=== PATIENT | female | born 1980 | race Caucasian/White ===

== ENCOUNTER 2020-09-30 14:56 | Emergency (ER) | payer SELFPAY ==
[~2020-09-30] VITALS: Ht 157.5 cm; Wt 62.6 kg
[2020-09-30 15:11] VITALS: BP 124/70
--- NOTE | 2020-09-30 16:40 | NUR ---
PT AMBULATED CHAIR A
--- NOTE | 2020-09-30 17:04 | NUR ---
NATASHA BUSTAMANTE EXAMINING PT
[2020-09-30] MEDS ORDERED: LIDOCAINE MPF 1% 10 MG/ML VIAL INJ ONE (17:05)
--- NOTE | 2020-09-30 17:13 | NUR ---
PATIENT AMBULATED TO BED 8
--- NOTE | 2020-09-30 17:30 | NUR ---
40 YEAR OLD FEMALE COMPLAINS OF RIGHT LEG LACERATION X TODAY. BLEEDING CONTROLLED. PT AOX4, BREATHING EVEN AND UNLABORED, SKIN WARM AND DRY. BED IN LOWEST POSITION, LOCKED, BED RAIL UPX1. PMH - DENIES ALLERGIES - NKA
[2020-09-30] MEDS ORDERED: IBUP-2213 PO (17:44)
[2020-09-30 17:55] VITALS: BP 124/70
--- NOTE | 2020-09-30 17:55 | NUR ---
Patient discharged with v/s stable. Written and verbal after care instructions about laceration care given and explained. Patient alert, oriented and verbalized understanding of instructions. Ambulatory with steady gait. All questions addressed prior to discharge. ID band removed. Patient advised to follow up with PMD. Rx of ibuprofen given. Patient educated on indication of medication including possible reaction and side effects. Opportunity to ask questions provided and answered.
== END 2020-09-30 17:55 | disposition home or self-care (01) ==
LOC: MED 14:56
DX: S81.811A Laceration without foreign body, right lower leg, initial encounter (principal); Z79.899 Other long term (current) drug therapy; W45.8XXA Other foreign body or object entering through skin, initial encounter; Y93.89 Activity, other specified; Y92.89 Other specified places as the place of occurrence of the external cause; Y99.8 Other external cause status
CPT/HCPCS: 12002; 90471; 90715; 99283; J2001

== ENCOUNTER 2020-10-07 15:12 | Emergency (ER) | payer SELFPAY ==
[~2020-10-07] VITALS: Ht 157.5 cm; Wt 62.6 kg
[~2020-10-07 15:12] MED LIST: IBUP-2213 PO
[2020-10-07 15:17] VITALS: BP 104/70
--- NOTE | 2020-10-07 15:23 | NUR ---
Pt ambulated to ER bed 8 with a steady gait.
--- NOTE | 2020-10-07 15:29 | NUR ---
40 Y/O FEMALE HERE FOR SUTURES RECHECK TO RIGHT CALF PLACED X7DAYS AGO. DENIES PAIN, DENIES N/V, DENIES FEVER/CHILLS. DENIES PMH NKA
[2020-10-07 15:49] VITALS: BP 104/70
--- NOTE | 2020-10-07 15:50 | NUR ---
Patient discharged with v/s stable. Written and verbal after care instructions given and explained. Patient verbalized understanding. Ambulatory with steady gait. All questions addressed prior to discharge. Advised to follow up with PMD.
== END 2020-10-07 15:50 | disposition home or self-care (01) ==
LOC: MED 15:12
DX: S81.811D Laceration without foreign body, right lower leg, subsequent encounter (principal); Z48.00 Encounter for change or removal of nonsurgical wound dressing; X58.XXXD Exposure to other specified factors, subsequent encounter
CPT/HCPCS: 99281

== ENCOUNTER 2021-05-30 18:30 | Emergency (ER) | payer MEDICAID ==
[~2021-05-30] VITALS: Ht 157.5 cm; Wt 66.2 kg
[2021-05-30 19:40] VITALS: BP 110/69
--- NOTE | 2021-05-30 22:30 | NUR ---
Patient BIB by family from home. C/O left eye pain x 3 weeks, Patient reported, had left eye pain and redness for 3 weeks, denies injury left eye.
--- NOTE | 2021-05-30 22:35 | NUR ---
Dr. Davis at [facility] to exam patient.
[2021-05-30] MEDS ORDERED: ERYTHROMYCIN 0.5% OPTH OINT 1 GM TUBE OP ONE (23:10)
[2021-05-30] MEDS ORDERED: TETRACAINE HCL/PF 0.5% OPTH 4 ML BTL OP ONE (23:10)
[2021-05-30] MEDS ORDERED: TOBR5SOL17 LEFT EYE (23:10)
[2021-05-31 00:18] VITALS: BP 110/69
--- NOTE | 2021-05-31 00:18 | NUR ---
Patient discharged with v/s stable. Written and verbal after care instructions given and explained. Patient alert, oriented and verbalized understanding of instructions. Ambulatory with steady gait. All questions addressed prior to discharge. ID band removed. Patient advised to follow up with PMD. Rx of Tobramycin given. Patient educated on indication of medication including possible reaction and side effects. Opportunity to ask questions provided and answered.
== END 2021-05-31 00:18 | disposition home or self-care (01) ==
LOC: MED 18:30
DX: H00.014 Hordeolum externum left upper eyelid (principal)
CPT/HCPCS: 99283